=== PATIENT | female | born 1950 | race Caucasian/White ===

== ENCOUNTER → 2016-10-27 | Outpatient (CLI) | payer MEDICARE, MEDICAID ==
[~2016-10-27] MED LIST: ALBU8.5H6 IH; ASPI325T4 PO; ATOR20TA PO; BUDE6HFA IH; CETI10TA20 PO; DABI75CA2 PO; DILT240C PO; DOCU-34 PO; FAMO-119 PO; FURO80TA62 PO; IBUP1CAP13 PO; MTL2.5T PO; NF-FLON16G; POTA10CA16 PO
--- NOTE | 2016-10-28 10:45 | Diagnostic Imaging Report ---
INDICATION: Screening mammogram COMPARISON: 11/05/2014, 08/08/2013 FAMILY HISTORY: Negative Bilateral digital mammography is performed with computer assisted detection (CAD) software utilization. There are no reported clinical signs and/or symptoms of breast cancer. The breast tissue pattern is composed mostly of fat tissue. No dominant mass, suspicious microcalcification, or other significant abnormality is identified. IMPRESSION: 1. Negative for malignancy. Follow-up mammography in one year is recommended. ACR BI-RADS Category 1: Negative Result letter will be mailed to the patient. Note: At least 10% of breast cancer is not imaged by mammography. Dictated by: Dictated on workstation # [id number]
== END ==
LOC: RAD 08:44
PROVIDERS: ATTEND Family Medicine
DX: Z12.31 Encounter for screening mammogram for malignant neoplasm of breast (principal)